=== PATIENT | male | born 1965 | race African-American/Black ===

== ENCOUNTER 2017-02-08 14:27 | Emergency (ER) | payer OTHER ==
--- NOTE | ~2017-02-08 | CT4 ---
[facility] A Service of [facility] RADIOLOGY TEXT RESULTS PATIENT: LORY DELGADO LOCATION: [place] : 61 UNIT #: [id number] AGE: [address]: Jaron Wright MD SEX: M ORDER DR: [id number] [facility]. [place], [place] [address] [id number] MR#: [id number] Acc #: [id number] NAME: LORY DELGADO : 1965 SEX: M STUDY DATE/TIME: 02/08/2017 14:51 UNIT: [facility] ROOM: STUDY DESCRIPTION: CT Abd and Pelv Wo Cont Attending Physician: Cedric Wright M.D. Ordering Physician: Ed Doctor [id number] [facility] Primary Care Physician: David Noonan M.D. MEDICAL IMAGING REPORT This report is preliminary unless electronic signature is present EXAM CT of the abdomen and pelvis without contrast HISTORY Ongoing left side pain which is worse the last 2 days. COMPARISON None TECHNIQUE Axial 3.0 mm images were obtained through the abdomen and pelvis without IV or oral contrast. This CT exam was performed with one or more of the following radiation dose reduction techniques: automatic exposure control, adjustment of mA and/or kV according to patient size, and iterative reconstruction. FINDINGS The lung bases are clear. The liver, gallbladder, spleen, pancreas, adrenal glands and kidneys have a normal appearance. No urinary stones are identified. The aorta is normal in size and there is no adenopathy. The bowel is normal. The bladder and prostate gland are normal. There are degenerative changes in the lumbar spine at L5-S1. IMPRESSION 1. Mild degenerative change at L5-S1. 2. No urinary stones are identified and no cause for the patient's left-sided pain is identified. The study is otherwise normal. Dictated by... [facility] A Service [facility] RADIOLOGY TEXT RESULTS PATIENT: LORY DELGADO LOCATION: [place] : 61 UNIT #: [id number] AGE: [address]: Jaron Wright MD SEX: M ORDER DR: Deion Mike M.D. THIS IS AN ELECTRONICALLY VERIFIED REPORT Deion Mike M.D. at 02/09/2017 6:08 AM Santhosh TD: 02/08/2017 17:29 JOB #: [id number] MEDICAL IMAGING REPORT Page 1 of 1 COPY
[2017-02-08 14:05] LABS: BASOPHIL% 0.6 % (0-2.5); EOSINOPHIL% 0.6 % (0.0-7.0); HEMATOCRIT 46.4 % (38.0-50.0); HEMOGLOBIN 15.2 gm/dL (13.0-16.0); LYMPHOCYTE# 1.4 X10e3 (1.0-3.5); LYMPHOCYTE% 27.7 % (17.0-45.0); MEAN CELL VOLUME 89.2 FL (83-96); MEAN CORPUSCULAR HEMOGLOBIN 29.3 PG (28-34); MEAN CORPUSCULAR HGB CONC 32.8 g/dL (30-36); MONOCYTE# 0.4 X10e3 (0-1.0); NEUTROPHIL# 3.3 X10e3 (1.5-7.1); NEUTROPHIL% 64.1 % (40-75); PLATELET COUNT 320 X10e3 (140-420); WHITE BLOOD COUNT 5.1 X10e3 (4.0-10.5)
[2017-02-08 14:07] LABS: DIFF IND NO
[~2017-02-08 14:27] MED LIST: AMOXICILLIN PO; FIORICET1 TAB PO; FLEXERIL10 MG PO; HYDROCODONE-A1 UDTA2 PO; IBUPROFEN800 MG PO; LORTAB 7.5-3251 EACH PO; PRILOSEC20 MG PO
[2017-02-08 14:43] LABS: ALBUMIN SERUM 4.4 g/dL (3.5-5.0); BILIRUBIN, DIRECT 0.1 mg/dL (0.0-0.2); BILIRUBIN,INDIRECT 0.9 mg/dL (0.0-0.9); BUN/CREATININE RATIO 8.33; CALCIUM SERUM 9.6 mg/dL (8.4-10.2); CREATININE SERUM 1.2 mg/dL (0.6-1.4); GLOM FILT RATE Estimated 79.6 mL/min (>60)
[2017-02-08 15:54] LABS: URINE SOURCE CLEAN CATCH
[2017-02-08 16:08] LABS: URBCS1 AUWI 0-2 /[HPF] (0-2); URINE APPEARANCE CLEAR; URINE BACTERIA AUWI NEG (NEGATIVE); URINE BILIRUBIN NEG (NEG); URINE BLOOD NEG (NEG); URINE COLOR YELLOW; URINE GLUCOSE NEG (NEG); URINE KETONE NEG (NEG); URINE LEUKOCYTE ESTERASE TRACE (NEG); URINE NITRATE NEG (NEG); URINE PROTEIN NEG (NEG); URINE SPECIFIC GRAVITY 1.019 (1.003-1.035); URINE SQUAMOUS EPITHELIAL CELL OCC /[HPF]
[2017-02-08 16:10] LABS: CULTURE INDICATED? NO
== END 2017-02-08 16:50 | disposition home or self-care (01) ==
LOC: CED 14:27
PROVIDERS: Emergency Medicine
DX: M54.5 Low back pain (principal); F17.210 Nicotine dependence, cigarettes, uncomplicated; Z88.0 Allergy status to penicillin; Z79.899 Other long term (current) drug therapy
CPT/HCPCS: 36415; 74176; 80048; 80076; 81003; 83690; 85025; 96374; 99284; J1885